=== PATIENT | female | born 1980 | race Caucasian/White ===

== ENCOUNTER → 2017-02-10 | Outpatient (CLI) | payer OTHER ==
[~2017-02-10] VITALS: Ht 167.6 cm; Wt 88.9 kg
[~2017-02-10] MED LIST: ANTIVERT 25MG25 MG PO; COLACE 100100 MG/CAP PO; D3-5050000 IU PO; EPIPEN 2-PAK1 MG/ML IM; FLEXERIL 1010 MG/TAB PO; HCTZ12.5TAB PO; MIDRIN 325 MG-11 CAP PO; MIRALAX119G PO; NORCO 325 MG-51 TAB PO; PRENATAL PO; PROAIR HFA0.09 MG/AC IH; RT ADVAIR 228 DISKUS IH; ZOFRAN8 MG PO
[2017-02-10 14:42] VITALS: BP 102/55; PULSE 56
== END ==
LOC: LIGHT 08:02
DX: Z98.84 Bariatric surgery status (principal); Z68.31 Body mass index [BMI] 31.0-31.9, adult

== ENCOUNTER → 2017-03-24 | Outpatient (CLI) | payer OTHER ==
[~2017-03-24] VITALS: Ht 167.6 cm; Wt 86.9 kg
[2017-03-24 14:52] VITALS: BP 90/40; PULSE 48
== END ==
LOC: LIGHT 12:34
DX: Z98.84 Bariatric surgery status (principal); Z68.30 Body mass index [BMI] 30.0-30.9, adult; Z71.3 Dietary counseling and surveillance

== ENCOUNTER 2017-03-31 16:08 | Inpatient (IN) | payer OTHER ==
[~2017-03-31] VITALS: Ht 172.8 cm; Wt 86.2 kg
[~2017-03-31 16:08] MED LIST changes: -FLEXERIL 1010 MG/TAB PO; -MIDRIN 325 MG-11 CAP PO; -NORCO 325 MG-51 TAB PO; -ZOFRAN8 MG PO
[2017-04-09] VITALS (9 sets, daily range): BP systolic 105–116; BP diastolic 53–65; PULSE 56–75; TEMP 97.9–98.1
[2017-04-09] MEDS ORDERED: FLEXERIL 1010 MG/TAB PO (10:02)
[2017-04-09] MEDS ORDERED: ZOFRAN8 MG PO (10:03)
[2017-04-09] MEDS ORDERED: MIDRIN 325 MG-11 CAP PO (10:03)
[2017-04-09] MEDS ORDERED: NORCO 325 MG-51 TAB PO (14:44)
== END 2017-04-09 16:42 | disposition home or self-care (01) | DRG 419 ==
LOC: INPTSU 04-09 08:56 → SURG 04-09 11:00 → INPTSU 04-09 16:42
PROVIDERS: Surgery
PROC: 0FT44ZZ Resection of Gallbladder, Percutaneous Endoscopic Approach (ICD-10-PCS; principal; 2017-04-09 11:00)
DX: K80.12 Calculus of gallbladder with acute and chronic cholecystitis without obstruction (principal); Z98.84 Bariatric surgery status; I34.1 Nonrheumatic mitral (valve) prolapse; J45.909 Unspecified asthma, uncomplicated
CPT/HCPCS: OP; J0690; J1100; J1170; J1885; J2250; J2405; J2550; J2704; J2710; J3010; J7120; Q9967

== ENCOUNTER → 2017-04-21 | Outpatient (CLI) | payer OTHER ==
[~2017-04-21] VITALS: Ht 172.7 cm; Wt 86.9 kg
[~2017-04-21] MED LIST changes: +FLEXERIL 1010 MG/TAB PO; +MIDRIN 325 MG-11 CAP PO; +NORCO 325 MG-51 TAB PO; +ZOFRAN8 MG PO
[2017-04-21 12:17] VITALS: BP 90/52; PULSE 64
== END ==
LOC: LIGHT 12:15
DX: Z98.84 Bariatric surgery status (principal); Z68.29 Body mass index [BMI] 29.0-29.9, adult; Z71.3 Dietary counseling and surveillance

== ENCOUNTER → 2017-04-30 | Outpatient (CLI) | payer OTHER | LOC: MHCPAIN 11:02 | DX: G89.29 Other chronic pain (principal); M47.27 Other spondylosis with radiculopathy, lumbosacral region; M53.3 Sacrococcygeal disorders, not elsewhere classified; Z87.891 Personal history of nicotine dependence | CPT/HCPCS: G0463 ==